=== PATIENT | male | born 1980 | race Caucasian/White ===

== ENCOUNTER 2018-03-25 14:29 | Emergency (ER) | payer BC ==
[2018-03-25] MEDS ORDERED: Sodium Chloride 0.45% 1,000 ML IV ONE (14:39)
[2018-03-25 14:58] LABS: % BASOPHILS 0.6 % (0.0-2.0); % LYMPHOCYTES 28.3 % (20.0-50.0); % MONOCYTES 9.7 % (2.0-10.0); % NEUTROPHILS 60.4 % (40.0-80.0); BASOPHILE ABSOLUTE 0.1 Th/cumm (0-0.2); EOSINOPHILE ABSOLUTE 0.1 Th/cmm (0.1-0.4); HEMATOCRIT 47.6 % (41.0-60); HEMOGLOBIN 16.3 gm/dL (12-16); LYMPHOCYTE ABSOLUTE 2.6 Th/cmm (1.5-3.0); MEAN CELL VOLUME 87.9 fl (80-99); MEAN CORPUSCULAR HEMOGLOBIN 30.2 pg (26.0-30.0); MEAN CORPUSCULAR HGB CONC 34.3 pg (28.0-36.0); MEAN PLATELET VOLUME 8.1 fl; MONOCYTE ABSOLUTE 0.9 Th/cmm (0.3-1.0); NEUTROPHILE ABSOLUTE 5.5 Th/cmm (1.8-8.0); PLATELET COUNT 227 Th/cmm (150-400); RED BLOOD COUNT 5.41 Mil/cmm (4.30-5.70); WHITE BLOOD COUNT 9.2 Th/cmm (4.8-10.8)
--- NOTE | 2018-03-25 15:02 | ED Physician Chart ---
ED Chief Complaint/HPI - Patient Information Date Seen:: 03/25/18 Time Seen:: 14:17 Chief Complaint:: WEAKNESS History of Present Illness:: THIS IS A 37 YO MALE WHO STATES THAT HE HAS NOT BEEN FEELING WELL WITH WEAKNESS AND PERIODS OF LETHARGY. HE DENIES FEVER, SOB, CHEST PAIN, ABDOMINAL PAIN AND HEAD PAIN. HE DENIES VOMITING AND DIARRHEA. Allergies:: Allergies Allergy/AdvReac Type Severity Reaction Status Date / Time No Known Allergies Allergy Verified 03/25/18 14:40 Vitals:: Vital Signs - 8 hr 03/25/18 14:41 Temp 98.0 F HR 86 RR 15 BP 145/86 O2 Sat % 98 Historian:: Patient Review:: Nurse's Note Reviewed ED Review of Systems - Review of Systems General/Constitutional: No fever, No chills, No weight loss, Weakness, No diaphoresis, No edema, No loss of appetite Skin: No skin lesions, No rash, No bruising Head: No headache, No light-headedness Eyes: No loss of vision, No pain, No diplopia ENT: No earache, No nasal drainage, No sore throat, No tinnitus Neck: No neck pain, No swelling, No thyromegaly, No stiffness, No mass noted Cardio Vascular: No chest pain, No palpitations, No PND, No orthopnea, No edema Pulmonary: No SOB, No cough, No sputum, No wheezing GI: No nausea, No vomiting, No diarrhea, No pain, No melena, No hematochezia, No constipation, No hematemesis G/U: No dysuria, No frequency, No hematuria Musculoskeletal: No bone or joint pain, No back pain, No muscle pain Endocrine: No polyuria, No polydipsia Psychiatric: No prior psych history, No depression, Anxiety, No suicidal ideation Hematopoietic: No bruising, No lymphadenopathy Allergic/Immuno: No urticaria, No angioedema Neurological: No syncope, No focal symptoms, No weakness, No paresthesia, No headache, No seizure, No dizziness, No confusion, No vertigo ED Past Medical History - Past Medical History Obtainable: Yes Past Medical History: No significant medical hx Family Medical History - Family Member Father Paternal History Unknown: Yes ED Physical Exam - Physical Examination General/Constitutional: Awake, Well-developed, well-nourished, Alert, No distress, GCS 15, Non-toxic appearing, Ambulatory Head: Atraumatic Eyes: Lids, conjuctiva normal, PERRL, EOMI Skin: Nl inspection, No rash, No skin lesions, No ecchymosis, Well hydrated, No lymphadenopathy ENMT: External ears, nose nl, Nasal exam nl, Lips, teeth, gums nl Neck: Nontender, Full ROM w/o pain, No JVD, No nuchal rigidity, No bruit, No mass, No stridor Respiratory: Nl effort/Exclusion, Clear to Auscultation, No Wheeze/Rhonchi/Rales Cardio Vascular: RRR, No murmur, gallop, rubs, NL S1 S2 GI: No tenderness/rebounding/guarding, No organomegaly, No hernia, Normal BS's, Nondistended, No mass/bruits, No McBurney tenderness : No CVA tenderness Extremities: No tenderness or effusion, Full ROM, normal strength in all extremities, No edema, Normal digits & nails Neuro/Psych: Alert/oriented, DTR's symmetric, Normal sensory exam, Normal motor strength, Judgement/insight normal, Mood normal, Normal gait, No focal deficits Misc: Normal back, No paraspinal tenderness ED Labs/Radiology/EKG Results - Lab Results Results: Abnormal Lab Results 03/25/18 03/25/18 03/25/18 14:50 14:50 14:50 WBC 9.2 RBC 5.41 Hgb 16.3 Hct 47.6 MCV 87.9 MCH 30.2 H MCHC Differential 34.3 RDW 12.0 Plt Count 227 MPV 8.1 Neutrophils % 60.4 Lymphocytes % 28.3 Monocytes % 9.7 Eosinophils % 1.0 Basophils % 0.6 PT 9.5 INR 0.91 PTT (Actin FS) 25.4 L Sodium 138 Potassium 3.9 Chloride 105 Carbon Dioxide 26.0 Anion Gap 10.9 BUN 15 Creatinine 1.0 Est GFR ( Amer) > 60.0 Est GFR (Non-Af Amer) > 60.0 BUN/Creatinine Ratio 15.0 Glucose 83 Calcium 9.5 Total Bilirubin 0.6 AST 14 ALT 23 Alkaline Phosphatase 74 Troponin I Total Protein 7.2 Albumin 4.4 Globulin 2.8 Albumin/Globulin Ratio 1.6 03/25/18 14:50 WBC RBC Hgb Hct MCV MCH MCHC Differential RDW Plt Count MPV Neutrophils % Lymphocytes % Monocytes % Eosinophils % Basophils % PT INR PTT (Actin FS) Sodium Potassium Chloride Carbon Dioxide Anion Gap BUN Creatinine Est GFR ( Amer) Est GFR (Non-Af Amer) BUN/Creatinine Ratio Glucose Calcium Total Bilirubin AST ALT Alkaline Phosphatase Troponin I < 0.01 L Total Protein Albumin Globulin Albumin/Globulin Ratio - EKG Interpretations EKG Time:: 15:53 Rate & Rhythm: RATE =84 SINUS Ronda: LEFT Comments:: NO ECTOPY SEEN ED Assessment - Assessment General Assessment: mild dehydration ED Septic Shock - . Is Septic Shock (SBP<90, OR Lactate>4 mmol\L) present?: No - <6hrs of presentation: Vital Signs: Vital Signs - 8 hr //18 14:41 Temp 98.0 F HR 86 RR 15 BP 145/86 O2 Sat % 98 ED Reassessment (Disposition) - Reassessment Reassessment Condition:: Improved - Diagnosis Diagnosis:: dehydration - Aftercare/Follow up Instructions Aftercare/Follow-Up Instructions:: Counseled pt regarding lab results/diagnosis & need follow up, Refer to Discharge Instructions, Counseled pt & family regarding lab results/diagnosis & need follow up - Patient Disposition Discharge/Transfer:: Home ED Discharge Plan - Patient Disposition Admit/Discharge/Transfer: PT DISCHARGED HOME Condition at Disposition: Improved
[2018-03-25 15:12] LABS: ALB/GLOB RATIO 1.6 (1.0-1.8); ALBUMIN 4.4 gm/dL (4.2-5.5); ALKALINE PHOSPHATASE 74 U/L (34-104); ANION GAP 10.9 (7.0-16.0); BILIRUBIN,TOTAL 0.6 mg/dL (0.3-1.0); BUN - UREA NITROGEN 15 mg/dL (7-25); CALCIUM SERUM 9.5 mg/dL (8.6-10.3); CHLORIDE 105 mEq/L (98-107); GFR AFRICAN-AMERICAN > 60.0 ml/min (>90); GFR NON AFRICAN-AMERICAN > 60.0 ml/min; GLUCOSE 83 mg/dL (70-105); POTASSIUM SERUM 3.9 mEq/L (3.5-5.1); SGOT 14 U/L (13-39); SGPT/ALT 23 U/L (7-52); SODIUM SERUM 138 mEq/L (136-145); TOTAL PROTEIN,SERUM 7.2 gm/dL (6.0-8.3)
[2018-03-25 15:20] LABS: INR 0.91 (0.5-1.4); PROTHROMBIN TIME (TEST) 9.5 SECONDS (9.5-11.5)
--- NOTE | 2018-03-26 09:16 | Diagnostic Imaging Report ---
Portable chest x-ray History: Shortness of breath Allowing for portable technique the heart size is normal. No focal pulmonary parenchymal processes. No hilar or mediastinal abnormalities. Impression: No acute abnormalities.
[2018-03-27 17:05] LABS: A1C % 5.4 % (4.0-6.0)
== END 2018-03-25 16:35 | disposition home or self-care (01) ==
LOC: ER 14:29
DX: E86.0 Dehydration (principal)
CPT/HCPCS: 36415-UA; 71045-TC; 80053-TC; 83036-90; 84443-TC; 84484-TC; 85025-TC; 85610-TC; 85730-TC; 93005; J7030

== ENCOUNTER 2019-03-27 05:29 | Emergency (ER) | payer BC ==
--- NOTE | 2019-03-27 06:01 | ED Physician Chart ---
ED Chief Complaint/HPI - Patient Information Date Seen:: 03/27/19 Time Seen:: 05:50 Chief Complaint:: sore throat for 4-5 days. History of Present Illness:: Pt came in by private auto because of sore throat for 4-5 days. No fever. Taking po well without N/V/D. Allergies:: Allergies Allergy/AdvReac Type Severity Reaction Status Date / Time No Known Allergies Allergy Verified 03/25/18 14:40 Vitals:: Vital Signs - 8 hr 03/27/19 05:30 Temp 98.1 F HR 67 RR 18 BP 135/83 O2 Sat % 98 Historian:: Patient Family MD/PCP:: Dr. Alvarez LMP:: N/A Review:: Nurse's Note Reviewed ED Review of Systems - Review of Systems General/Constitutional: No fever, No chills, No weight loss, No weakness, No edema, No loss of appetite Skin: No rash, No bruising Head: No headache, No light-headedness Eyes: No loss of vision, No pain, No diplopia ENT: No earache, No nasal drainage, Sore throat Neck: No neck pain, No swelling, No thyromegaly, No stiffness, No mass noted Cardio Vascular: No chest pain, No palpitations Pulmonary: No SOB, No cough, No wheezing GI: No nausea, No vomiting, No diarrhea, No pain G/U: No dysuria, No frequency, No hematuria Musculoskeletal: No bone or joint pain Psychiatric: No prior psych history Hematopoietic: No bruising, No lymphadenopathy Allergic/Immuno: No urticaria, No angioedema Neurological: No syncope, No focal symptoms, No weakness, No paresthesia, No headache, No dizziness, No confusion ED Past Medical History - Past Medical History Past Medical History: CAD (s/p MN about 6 months ago, s/p angioplasty and placement of 2 stents.), Dyslipidemia Family History: Heart disease, Diabetes Melitus, HTN Social History: Non Smoker, Alcohol (occasional), No Drug Use, , Employed , Other (lives with his .) Employment:: construction. Surgical History: other (coronary angioplasty and placement of 2 stents about 6 months ago.) Psychiatricy History: None Medication: Reviewed Family Medical History - Family Member Father Paternal History Unknown: Yes Ethnicity: Living Status: Still Living ED Physical Exam - Physical Examination General/Constitutional: Awake, Well-developed, well-nourished (male), Alert, No distress, Non-toxic appearing, Ambulatory Other Gen/Cons comments:: Breathes comfortably, speaks clearly, and interacts appropriately. Head: Atraumatic Eyes: Lids, conjuctiva normal, PERRL, EOMI Skin: No rash, Well hydrated, No lymphadenopathy Other Skin comments:: Mild cervical lymphadenopathy noticed. ENMT: External ears, nose nl, Nasal exam nl Other ENMT comments:: Tonsils are slightly erythematous with trace white exudate. Neck: Nontender, Full ROM w/o pain, No JVD, No nuchal rigidity, No mass Respiratory: Nl effort/Exclusion, No Wheeze/Rhonchi/Rales Cardio Vascular: RRR, No murmur, gallop, rubs GI: No tenderness/rebounding/guarding, No organomegaly, Normal BS's, Nondistended, No mass/bruits Other GI comments:: Soft Extremities: No tenderness or effusion, No edema Neuro/Psych: Alert/oriented (oriented x 3), Judgement/insight normal, Mood normal, Normal gait, No focal deficits ED Septic Shock - . Is Septic Shock (SBP<90, OR Lactate>4 mmol\L) present?: No - <6hrs of presentation: Vital Signs: Vital Signs - 8 hr 03/27/19 05:30 Temp 98.1 F HR 67 RR 18 BP 135/83 O2 Sat % 98 ED Reassessment (Disposition) - Reassessment Reassessment:: 0615 Pt remains stable. Pt requests to go home now. Aftercare instructions have been given. - Diagnosis Diagnosis:: Acute tonsillitis. Stable. - Aftercare/Follow up Instructions Notes:: Bed rest for today. Increase oral hydration. Oral hygiene instructions given. May take Tylenol 500 mg tab one tab po q6h prn for pain or fever. F/U with Dr. Alvarez in one day for recheck. Return to ER immediately if condition worsens or if any further questions/problems. Medication Prescribed:: Amoxicillin 500 mg tab one tab po q8h for 10 days. D-30 R-0 - Patient Disposition Discharge/Transfer:: Home Time:: 06:20 Condition at Disposition:: Stable
== END 2019-03-27 06:24 | disposition home or self-care (01) ==
LOC: ER 05:29
DX: J03.90 Acute tonsillitis, unspecified (principal); I25.10 Atherosclerotic heart disease of native coronary artery without angina pectoris; E78.5 Hyperlipidemia, unspecified
CPT/HCPCS: Z7502